=== PATIENT | female | born 1945 | race Hispanic/Latino ===

== ENCOUNTER → 2024-04-26 | Outpatient (CLI) | payer MEDICARE ==
[2024-04-26 16:23] LABS: BASOPHILS # (AUTO) 0.05 K/uL (0.00-0.20); BASOPHILS % (AUTO) 0.6 % (0.0-5.0); EOSINOPHILS # (AUTO) 0.11 K/uL (0.00-0.70); EOSINOPHILS % (AUTO) 1.4 % (0.0-8.0); IMMATURE GRANULOCYTE ABSOLUTE 0.04 K/uL (0-1); LYMPHOCYTES # (AUTO) 1.9 K/uL (1.0-4.8); MEAN CORPUSCULAR HEMOGLOBIN 28.9 pg (27.0-33.0); MEAN CORPUSCULAR HGB CONC 32.6 g/dL (32.0-36.0); MEAN CORPUSCULAR VOLUME 88.6 fL (79-99); MONOCYTES # (AUTO) 0.6 K/uL (0.1-1.0); MONOCYTES % (AUTO) 8.1 % (3.0-13.0); NEUTROPHILS # (AUTO) 5.1 K/uL (1.8-7.7); NEUTROPHILS % (AUTO) 65.4 % (40.0-77.0); PLATELET COUNT (AUTO) 202 K/uL (130-400); RED BLOOD CELL COUNT(AUTO) 3.95 MIL/uL (4.00-5.50); WHITE BLOOD COUNT (AUTO) 7.8 K/uL (4.8-10.8)
[2024-04-26 20:04] LABS: FERRITIN 107 ng/mL (15-150)
[2024-04-26 22:12] LABS: % IRON SATURATION 9.9 % (22-44)
== END | disposition home or self-care (01) ==
LOC: LAB 13:19
PROVIDERS: ATTEND Internal Medicine Cardiovascular Disease
DX: D64.9 Anemia, unspecified (principal); I48.0 Paroxysmal atrial fibrillation; Z79.01 Long term (current) use of anticoagulants; Z79.899 Other long term (current) drug therapy
CPT/HCPCS: 36415; 82607; 82728; 82747; 83540; 83550; 85025

== ENCOUNTER 2025-08-08 08:13 | Day surgery (SDC) | payer MEDICARE ==
[2025-08-06 09:10] LABS: IMMATURE GRANULOCYTE ABSOLUTE 0.04 K/uL (0-1); NUCLEATED RED BLOOD CELLS 0.0 % (0.0-0.19); PLATELET COUNT (AUTO) 180 K/uL (130-400); RED BLOOD CELL COUNT(AUTO) 4.86 MIL/uL (4.00-5.50); RED CELL DISTRIBUTION WIDTH 15.0 % (11.0-15.5); WHITE BLOOD COUNT (AUTO) 7.3 K/uL (4.8-10.8)
[2025-08-06 09:20] LABS: CREATININE 0.9 mg/dL (0.5-1.0); GLOMERULAR FILTR. RATE CALC 65.0 mL/min (>90); GLUCOSE,RANDOM 197.0 mg/dL (70-105); SODIUM SERUM 137.0 mmol/L (136-145); UREA NITROGEN, BLOOD 35.0 mg/dL (7-18)
[2025-08-06 09:21] VITALS: BP 147/72; PULSE 75; RESP 18; TEMP 97.2
[~2025-08-08] VITALS: Ht 157.5 cm; Wt 68.1 kg
[2025-08-08] VITALS (7 sets, daily range): BP systolic 129–162; BP diastolic 38–85; PULSE 61–81; RESP 14–15; TEMP 97.4–97.8
[~2025-08-08 08:13] MED LIST: APIX5TAB PO; ATOR10 PO; CEPH125S PO; DRON400T7 PO; EMPA1TAB7 PO; METO25TA6 PO; METO50TA18 PO; SITA100T12 PO; SOLI10TA PO; VITA1CAP8 PO; VITAD50000 PO; [UNRECOGNIZED DRUG - CODE] PO
--- NOTE | 2025-08-08 10:42 | NUR ---
PT SYNCHRONIZED CARDIOVERTED [address] DANIELSON SUCCESSFUL NAD VSS
--- NOTE | 2025-08-08 10:55 | NUR ---
PT AWAKE SPEAKING WITH STAFF VSS NAD
--- NOTE | 2025-08-08 11:40 | NUR ---
BOTH PT AND DAUGHTER GIVEN VERBAL AND WRITTEN DISCHARGE INSTRUCTIONS IV REMOVED SITE ASYMPTOMATIC. PT TAKEN OUT VIA WHEELCHAIR
--- NOTE | 2025-08-08 12:03 | EKG ---
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
--- NOTE | 2025-08-08 12:03 | EKG ---
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
--- NOTE | 2025-08-08 12:32 | PRN ---
Procedure Note Date of procedure: 08/08/2025 Diagnosis: Persistent atrial fibrillation Procedure: 1. Cardioversion 2. ICD programming evaluation multi x2 Physician: Venkat Danielson MD The patient was brought to the day patient area in a fasting state. The patient's ICD was interrogated and reprogrammed. Anesthesia was provided by the anesthesia service. Cardioversion was performed with a synchronized shock at 200 joules resulting in sinus rhythm. The patient tolerated the procedure well. The ICD was again interrogated and reprogrammed. Final diagnosis: Persistent atrial fibrillation, status post successful cardioversion Plan: 1. The patient will be discharged later today and will follow up with me in the office in approximately two weeks. VENKAT DANIELSON MD Aug 08, 2025 12:32
== END 2025-08-08 11:47 | disposition home or self-care (01) ==
LOC: DAH 08:13
PROVIDERS: ATTEND Internal Medicine Cardiovascular Disease
DX: I48.19 Other persistent atrial fibrillation (principal); I10 Essential (primary) hypertension; E78.5 Hyperlipidemia, unspecified; I42.0 Dilated cardiomyopathy; E11.9 Type 2 diabetes mellitus without complications; M19.90 Unspecified osteoarthritis, unspecified site; Z96.659 Presence of unspecified artificial knee joint; Z90.710 Acquired absence of both cervix and uterus; Z90.49 Acquired absence of other specified parts of digestive tract; Z79.899 Other long term (current) drug therapy
CPT/HCPCS: 80048; 85025; 36415; 92960; 93287 ×2; 82948; 93005 ×2; J2704; A4620; A4215; A4222; A4221; A4663; A4216; A4606; A4223 ×3; J3490

== ENCOUNTER 2025-09-13 06:01 | Day surgery (SDC) | payer MEDICARE ==
[2025-09-11 08:44] LABS: IMMATURE GRANULOCYTE ABSOLUTE 0.05 K/uL (0-1); NUCLEATED RED BLOOD CELLS 0.0 % (0.0-0.19); PLATELET COUNT (AUTO) 143 K/uL (130-400); RED BLOOD CELL COUNT(AUTO) 4.63 MIL/uL (4.00-5.50); RED CELL DISTRIBUTION WIDTH 15.3 % (11.0-15.5); WHITE BLOOD COUNT (AUTO) 7.5 K/uL (4.8-10.8)
--- NOTE | 2025-09-11 08:46 | EKG ---
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 : 1945 Requested By: MEGHANN DANIELSON Order Number: [id number] Reading MD: Letty Almeida Measurements Intervals [place] Rate: 65 P: 0 NE: 147 QRS: 66 QRSD: 148 T: -35 QT: 462 QTc: 480 Interpretive Statements Atrial-paced complexes Right bundle branch block Abnrm T, consider ischemia, anterolateral lds Compared to ECG 08/08/2025 10:47:54 Right bundle-branch block now present Possible ischemia now present Ventricular-paced complex(es) or rhythm no longer present AV dual-paced complex(es) or rhythm no longer present Electronically Signed On 09-11-2025 19:42:10 COMPUTER INFORMATION SYSTEMS INSTRUCTOR by Ltety Almeida Please click the below link to view image of tracing.
[2025-09-11 08:54] VITALS: BP 147/70; PULSE 81; RESP 18; TEMP 97.2
[2025-09-11 08:54] LABS: INR 1.02 (0.85-1.15)
[2025-09-11 08:58] LABS: CREATININE 0.9 mg/dL (0.5-1.0); GLOMERULAR FILTR. RATE CALC 65.0 mL/min (>90); GLUCOSE,RANDOM 153.0 mg/dL (70-105); SODIUM SERUM 135.0 mmol/L (136-145); UREA NITROGEN, BLOOD 28.0 mg/dL (7-18)
[~2025-09-13] VITALS: Ht 152.4 cm; Wt 68.4 kg
[2025-09-13] VITALS (21 sets, daily range): BP systolic 130–179; BP diastolic 49–72; PULSE 59–68; RESP 12–17; TEMP 96–97.7
[~2025-09-13 06:01] MED LIST changes: -CEPH125S PO; +CHOL500045 PO; -METO50TA18 PO; -VITAD50000 PO
[2025-09-13] MEDS: 0.9%NACL 1000ML 1,000 ML IV ONE (06:56)
[2025-09-13] MEDS ORDERED: FAMOTIDINE 20MG VIAL IV ONE (07:27)
[2025-09-13] MEDS ORDERED: LIDOCAINE PF 100MG/5ML (2%) SYRINGE 5ML ONE (07:28)
[2025-09-13] MEDS ORDERED: MIDAZOLAM HCL 1 MG/ML 2ML VIAL ONE (07:28)
[2025-09-13] MEDS ORDERED: LIDOCAINE HCL 400MG/20ML VIAL ONE (07:43)
[2025-09-13] MEDS ORDERED: SODIUM BICARB 50MEQ 50ML VIAL 50 ML ONE (07:43)
[2025-09-13] MEDS ORDERED: HEParin-NS 1,000 UNIT/500 ML 1,000 ML IV ONE (07:44)
[2025-09-13] MEDS ORDERED: HEParin-NS 1,000 UNIT/500 ML 500 ML IV ONE (07:57)
[2025-09-13] MEDS ORDERED: GLYCOPYRROLATE 0.2 MG/ML 5 ML VIAL ONE (08:43)
[2025-09-13] MEDS ORDERED: NEOSTIGMINE METHYLSULFATE 1MG/ML IV ONE (08:44)
[2025-09-13] MEDS ORDERED: BIVALIRUDIN 250 MG/VIAL IV ONE (08:58)
[2025-09-13 10:11] LABS: ABG BASE EXCESS -5.2 mmol/L (-2.0-3.0); ABG HCO3 20.4 mmol/L (21.0-28.0); ABG OXYGEN SATURATION 99.1 % (94.0-98.0); ABG PCO2 40 mmHg (32-45); ABG PH 7.329 (7.350-7.450); CARBON MONOXIDE 0.6 % (0.5-1.5); PO2, ARTERIAL BG 363.1 mmHg (83.0-108.0); TEMPERATURE, CELSIUS BG 37.0 CELSIUS (35.5-37.0); VENT MODE, BG ANT VENT (ROOM AIR)
[2025-09-13] MEDS ORDERED: SUCR1ORA15 PO (10:44)
[2025-09-13] MEDS ORDERED: PANT40TA55 PO (10:44)
[2025-09-13] MEDS: SUCRALFATE 1 GM/10 ML PO ONE (13:29)
== END 2025-09-13 13:50 | disposition home or self-care (01) ==
LOC: DAH 06:01
PROVIDERS: ATTEND Internal Medicine Cardiovascular Disease
DX: I48.19 Other persistent atrial fibrillation (principal); E11.9 Type 2 diabetes mellitus without complications; I10 Essential (primary) hypertension; E78.5 Hyperlipidemia, unspecified; I45.10 Unspecified right bundle-branch block; Z95.810 Presence of automatic (implantable) cardiac defibrillator; Z90.710 Acquired absence of both cervix and uterus; Z90.49 Acquired absence of other specified parts of digestive tract; Z96.659 Presence of unspecified artificial knee joint; Z79.899 Other long term (current) drug therapy
CPT/HCPCS: 80048; 85025; 85610; 85730; 36415; 93005; 93656; 82947; 82435; 84132; 84295; 82803; 85347 ×3; 85018; 82948; 83605; C1894 ×3; C1732 ×3; C1760 ×3; A4649 ×2; C1766; J1308; J3010; J3490 ×4; J1100; J7030; J2720; J1644 ×3; J2250; J2704; J2405 ×2; J2710; J2371; A4215; A4222; A4221; A4663; A4223 ×3; J0583; J2003